=== PATIENT | male | born 1970 | race Caucasian/White ===

== ENCOUNTER 2016-08-13 09:51 | Emergency (ER) | payer SELFPAY ==
[~2016-08-13] VITALS: Ht 170.2 cm; Wt 86.4 kg
[2016-08-13] MEDS ORDERED: METO50 PO (10:02)
[2016-08-13] MEDS ORDERED: HYDROCODONE/ACETAMINOPHEN 5-325 MG TABLET PO ONE (11:30)
[2016-08-13 11:33] VITALS: BP 142/87
== END 2016-08-13 11:40 | disposition home or self-care (01) ==
LOC: EMS 09:54
DX: K40.90 Unilateral inguinal hernia, without obstruction or gangrene, not specified as recurrent (principal); I10 Essential (primary) hypertension; E78.00 Pure hypercholesterolemia, unspecified
CPT/HCPCS: 99283